=== PATIENT | male | born 1995 | race Caucasian/White ===

== ENCOUNTER 2019-02-14 17:59 | Emergency (ER) | payer SELFPAY ==
[2019-02-14 18:13] VITALS: TEMP 97.6; O2SAT 98
[2019-02-14] MEDS ORDERED: CHLORHEXIDINE GLUCONATE 4 % 15 ML UD TOP ONE (18:14)
[2019-02-14] MEDS ORDERED: LIDOCAINE 2% W/ EPINEPHRINE 20 ML VIAL INJ ONE (18:23)
--- NOTE | 2019-02-14 18:55 | ED.PDOC ---
History of Present Illness - General Chief Complaint: Laceration Stated Complaint: laceration Time Seen by Provider: 02/14/19 18:17 Source: patient Exam Limitations: no limitations - History of Present Illness Initial Comments: the patient's 24-year-old male presenting to the emergency room secondary to a C-shaped laceration to his lower alcocer. 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 He has been ambulatory since without any difficulty. No obvious sensory deficits distally. He is vascularly intact as well. No evidence of any overt fracture. No other injuries. The patient is pleasant and cooperative. Timing/Duration: 1/2 hour Severity: moderate Improving Factors: nothing Worsening Factors: nothing Associated Symptoms: denies symptoms Home Medications: Ambulatory Orders Divalproex Sodium [Depakote ER] 2,000 mg PO DAILY 02/14/19 Sulfa/Trimeth 800/160 (Ds) Tab [Bactrim DS Tab] 1 ea PO DAILY #4 tab 02/14/19 Review of Systems - Review of Systems Constitutional: States: no symptoms reported EENTM: States: no symptoms reported Respiratory: States: no symptoms reported Cardiology: States: no symptoms reported Gastrointestinal/Abdominal: States: no symptoms reported Genitourinary: States: no symptoms reported Musculoskeletal: States: no symptoms reported Skin: States: see HPI Neurological: States: no symptoms reported Endocrine: States: no symptoms reported All other Systems: No Change from Baseline Past Medical History (General) - Patient Medical History Hx Seizures: Yes - Epilepsy Hx Stroke: No Hx Congestive Heart Failure: No Hx Diabetes: No Surgical History: no surgical history - Vaccination History Hx Tetanus, Diphtheria Vaccination: Yes - current Hx Influenza Vaccination: Yes - Social History Hx Tobacco Use: Yes Family Medical History - Family History Father Family History: Unknown Living Status: Unknown Physical Exam - Physical Exam General Appearance: Alert, Comfortable, No apparent distress Eye Exam: bilateral normal - eyes are bloodshot Ears, Nose, Throat: hearing grossly normal, normal ENT inspection Neck: full range of motion, supple Respiratory: no respiratory distress, no accessory muscle use Cardiovascular/Chest: normal peripheral pulses, regular rate, rhythm, no edema Peripheral Pulses: radial,right: 2+, radial,left: 2+ Gastrointestinal/Abdominal: non tender, soft Rectal Exam: deferred Back Exam: no CVA tenderness, no vertebral tenderness Extremity: normal range of motion, no pedal edema, no calf tenderness, normal capillary refill Neurologic: sliver former II-XII nml as tested, no motor/sensory deficits, alert, normal mood/affect, oriented x 3 Skin Exam: normal color - laceration as per above. Total length of laceration is approximately 1.75 inches. Comments: Vital Signs - 24 hr 02/14/19 18:10 Temperature 97.6 F Pulse Rate [ 85 Left Brachial] Respiratory 16 Rate Blood Pressure 144/93 [Left Arm] O2 Sat by Pulse 98 Oximetry Progress - Progress Progress: 02/14/19 18:56 the patient is a 24-year-old male presenting to emergency room secondary to a C-shaped laceration to his distal right alcocer. After risks and benefits were explained the wound was cleaned. 1% lidocaine with epinephrine was used 2 cc for local anesthetic. 9 simple sutures of 3-0 Prolene were used for reapproximation. Patient tolerated the procedure well. He can use triple antibiotic ointment and a Band-Aid to keep the wound covered to prevent irritation while he is working. Sutures need to come out in 10-12 days. He'll be placed onBactrim once daily for the next 4 days for prophylactic purposes. He was given 1 dose here. ER warnings were given. Keep routine follow-up with primary care doctor otherwise. Departure - Departure Clinical Impression: Accidental laceration Disposition: Discharge to Home or Self Care Condition: Fair Departure Forms: ED Discharge - Pt. Copy, Patient Portal Self Enrollment Diet: regular diet Activity: increase activity as tolerated Prescriptions: Sulfa/Trimeth 800/160 (Ds) Tab [Bactrim DS Tab] 1 ea PO DAILY #4 tab Home Medications: Ambulatory Orders Divalproex Sodium [Depakote ER] 2,000 mg PO DAILY 02/14/19 Sulfa/Trimeth 800/160 (Ds) Tab [Bactrim DS Tab] 1 ea PO DAILY #4 tab 02/14/19 Additional Instructions: the patient is a 24-year-old male presenting to emergency room secondary to a C- shaped laceration to his distal right alcocer. the wound was cleaned. 1% lidocaine with epinephrine was used 2 cc for local anesthetic. 9 simple sutures of 3-0 Prolene were used for reapproximation. Patient tolerated the procedure well. He can use triple antibiotic ointment and a Band-Aid to keep the wound covered to prevent irritation while he is working. Sutures need to come out in 10-12 days. He'll be placed onBactrim once daily for the next 4 days for prophylactic purposes. He was given 1 dose here. ER warnings were given. Keep routine follow-up with primary care doctor otherwise.
[2019-02-14] MEDS ORDERED: SULFA/TRIMETH 800/160 (DS) TAB 1 EA TAB PO ONE (18:59)
[2019-02-14 19:11] VITALS: BP 124/78
== END 2019-02-14 19:07 | disposition home or self-care (01) ==
LOC: ER 17:59
DX: S81.811A Laceration without foreign body, right lower leg, initial encounter (principal); G40.909 Epilepsy, unspecified, not intractable, without status epilepticus; Z87.891 Personal history of nicotine dependence; Z79.899 Other long term (current) drug therapy; W22.09XA Striking against other stationary object, initial encounter; Y92.34 Swimming pool (public) as the place of occurrence of the external cause